=== PATIENT | male | born 1965 | race Caucasian/White ===

== ENCOUNTER 2018-04-30 17:11 | Emergency (ER) | payer SELFPAY ==
[2018-04-30 18:08] LABS: #Basophils 0.1 thou/uL (0.0-0.2); #Eosinphils 0.2 thou/uL (0.0-0.7); #Monocytes 0.6 thou/uL (0.11-0.59); #Neutrophils 6.6 thou/uL (1.40-6.50); %Eosinophils 2.6 % (0.0-10.0); %Lymphocytes 21.4 % (21.0-51.0); %Neutrophils 69.1 % (42.0-75.0); Hemoglobin 14.9 g/dL (14.0-18.0); Mean Corpuscular HGB CONC 32.9 g/dL (32.0-36.0); Mean Corpuscular Hemoglobin 27.7 pg (27.0-31.0); Mean Corpuscular Volume 84.1 fL (78.0-98.0); Mean Platelet Volume 9.6 fL (7.4-10.4); Platelet Count 227 thou/uL (130-400); RBC Distribution Width 12.5 % (11.5-14.5); White Blood Cell (WBC) Count 9.5 thou/uL (4.8-10.8)
[2018-04-30] MEDS ORDERED: Pantoprazole 40 MG VIAL ONE (18:27)
[2018-04-30 18:36] LABS: ALT (SGPT) 56 U/L (8-55); AST (SGOT) 33 U/L (5-34); Albumin 4.7 g/dL (3.5-5.0); Alkaline Phosphatase 86 U/L (40-150); Anion Gap 14 mmol/L (10-20); BUN (Urea Nitrogen) 16 mg/dL (8.4-25.7); Bilirubin, Total 0.4 mg/dL (0.2-1.2); CK (CPK) 87 U/L (30-200); CKMB 0.8 ng/mL (0-6.6); Calc. Creatinine Clearance 0 mL/min (70-130); Calcium 10.2 mg/dL (7.8-10.44); Carbon Dioxide 23 mmol/L (22-29); Chloride 103 mmol/L (98-107); Estimated GFR-MDRD Greater than 90; Glucose 103 mg/dL (70-105); Lipase 43 U/L (8-78); Potassium 4.1 mmol/L (3.5-5.1); Protein, Total 8.7 g/dL (6.0-8.3); Sodium 136 mmol/L (136-145); Troponin I Less than 0.010 ng/mL (< 0.028)
--- NOTE | 2018-04-30 19:36 | RAD ---
PORTABLE CHEST ONE VIEW: 04/30/18 at 5:39 p.m. HISTORY: Chest pain. FINDINGS: Comparison is made with exam of 03/07/11. The heart size is normal. The lungs are expanded without focal areas of consolidation, pneumothoraces or pleural effusions. IMPRESSION: No radiographic evidence of acute cardiopulmonary process. POS: [facility]
== END 2018-04-30 20:10 | disposition home or self-care (01) ==
LOC: ERS 17:11
DX: R07.89 Other chest pain (principal); I10 Essential (primary) hypertension; F41.9 Anxiety disorder, unspecified; Z87.891 Personal history of nicotine dependence; Z79.899 Other long term (current) drug therapy
CPT/HCPCS: 36415; 71045; 80053; 82550; 82553; 83690; 84484; 85025; 93005; 96374; C9113

== ENCOUNTER 2020-02-06 12:44 | Emergency (ER) | payer SELFPAY ==
[2020-02-06 13:30] LABS: Bilirubin Negative (Negative); Blood, Urine Negative (Negative); Clarity Clear (Clear); Glucose, Urine (Dipstick) Normal (Negative); Ketone, Urine Negative (Negative); Leukocyte Negative Leu/uL (Negative); Nitrite Negative (Negative); Protein, Urine (Dipstick) Negative (Neg-Trace); Specific Gravity, Urine 1.021 (1.002-1.036); Urobilinogen Normal mg/dL (Less than 2)
[2020-02-06 13:44] LABS: #Eosinphils 0.2 thou/uL (0.0-0.7); #Lymphocytes 1.7 thou/uL (1.20-3.40); #Monocytes 0.5 thou/uL (0.11-0.59); #Neutrophils 5.1 thou/uL (1.40-6.50); %Basophils 0.6 % (0.0-1.0); %Eosinophils 2.6 % (0.0-10.0); %Lymphocytes 22.3 % (21.0-51.0); %Monocytes 6.2 % (0.0-10.0); %Neutrophils 68.3 % (42.0-75.0); Hemoglobin 13.4 g/dL (14.0-18.0); Mean Corpuscular HGB CONC 33.3 g/dL (32.0-36.0); Mean Corpuscular Hemoglobin 28.2 pg (27.0-31.0); Mean Corpuscular Volume 84.7 fL (78.0-98.0); Mean Platelet Volume 9.7 fL (7.4-10.4); Platelet Count 172 thou/uL (130-400); RBC Distribution Width 12.4 % (11.5-14.5); Red Blood Cell (RBC) Count 4.77 mill/uL (4.70-6.10); White Blood Cell (WBC) Count 7.5 thou/uL (4.8-10.8)
[2020-02-06 14:04] LABS: Anion Gap 11 mmol/L (10-20); BUN (Urea Nitrogen) 14 mg/dL (8.4-25.7); Calc. Creatinine Clearance 0 mL/min (70-130); Calcium 9.4 mg/dL (7.8-10.44); Carbon Dioxide 26 mmol/L (22-29); Chloride 105 mmol/L (98-107); Estimated GFR-MDRD 84; Glucose 127 mg/dL (70-105); Potassium 4.2 mmol/L (3.5-5.1); Sodium 138 mmol/L (136-145)
--- NOTE | 2020-02-06 14:13 | CT ---
CT Stone Protocol History: Right flank pain Comparison: None. Findings: Lung bases are clear. No pericardial effusion. Diffuse hepatic steatosis. Minimally obstructing calculus distal left ureter 3 cm from the ureterovesicular junction measuring 3 mm in transverse with a length of 5 mm. Minimal left hydroureteronephrosis. There are nonobstructing calculi within both renal collecting systems including a 4 mm right interpol ar calculus as well as a 2 mm left superior and 1 x 2 mm interpolar renal calculus. No dilated loops of large or small bowel. No acute osseous abnormality. Noncontrast evaluation of the spleen and pancreas as well as the gallbladder are unremarkable. Impression: Minimally obstructing calculus distal left ureter 3 cm from the ureterovesicular junction measuring 3 x 5 mm.
== END 2020-02-06 14:35 | disposition home or self-care (01) ==
LOC: ERS 12:44
DX: N13.2 Hydronephrosis with renal and ureteral calculous obstruction (principal); I10 Essential (primary) hypertension; E78.00 Pure hypercholesterolemia, unspecified; F41.9 Anxiety disorder, unspecified; Z87.891 Personal history of nicotine dependence; Z79.899 Other long term (current) drug therapy
CPT/HCPCS: 36415; 74176; 80048; 81003; 85025

== ENCOUNTER 2020-06-12 10:53 | Emergency (ER) | payer SELFPAY ==
[2020-06-12 11:42] LABS: #Monocytes 0.3 thou/uL (0.11-0.59); #Neutrophils 2.9 thou/uL (1.40-6.50); %Eosinophils 0.1 % (0.0-10.0); %Lymphocytes 23.8 % (21.0-51.0); %Monocytes 6.5 % (0.0-10.0); %Neutrophils 68.7 % (42.0-75.0); Hemoglobin 13.2 g/dL (14.0-18.0); Mean Corpuscular HGB CONC 33.9 g/dL (32.0-36.0); Mean Corpuscular Hemoglobin 28.3 pg (27.0-31.0); Mean Corpuscular Volume 83.6 fL (78.0-98.0); Mean Platelet Volume 9.9 fL (7.4-10.4); Platelet Count 130 thou/uL (130-400); RBC Distribution Width 12.8 % (11.5-14.5); Red Blood Cell (RBC) Count 4.66 mill/uL (4.70-6.10); White Blood Cell (WBC) Count 4.2 thou/uL (4.8-10.8)
[2020-06-12 12:02] LABS: ALT (SGPT) 37 U/L (8-55); AST (SGOT) 31 U/L (5-34); Albumin 3.6 g/dL (3.5-5.0); Alkaline Phosphatase 53 U/L (40-110); Anion Gap 14 mmol/L (10-20); BUN (Urea Nitrogen) 13 mg/dL (8.4-25.7); Bilirubin, Total 0.6 mg/dL (0.2-1.2); Calc. Creatinine Clearance 0 mL/min (70-130); Calcium 8.2 mg/dL (7.8-10.44); Carbon Dioxide 24 mmol/L (22-29); Chloride 99 mmol/L (98-107); Estimated GFR-MDRD Greater than 90; Globulin 3.3 g/dL (2.4-3.5); Glucose 138 mg/dL (70-105); Lipase 40 U/L (8-78); Potassium 3.2 mmol/L (3.5-5.1); Protein, Total 6.9 g/dL (6.0-8.3); Sodium 134 mmol/L (136-145)
--- NOTE | 2020-06-12 13:28 | CT ---
EXAM: CT angiogram of the chest including 3-D rendering: HISTORY: Chest pain, Covid positive COMPARISON: None FINDINGS: There is adequate opacification of the pulmonary arteries. No evidence for aortic aneurysm or dissection. No convincing CT evidence for acute pulmonary embolism. Evidence for bilateral extensive groundglass opacity changes evidence for classic Covid 19 pneumonia No evidence for mediastinal mass or adenopathy. No evidence for pleural or pericardial effusion. Small hiatal hernia. IMPRESSION: No convincing CT evidence for acute pulmonary embolism. Evidence for bilateral classic Covid pneumonia
[2020-06-12] MEDS ORDERED: Iopamidol-370 76% 500 ML 1 ML ONE (15:33)
[2020-06-12] MEDS ORDERED: Potassium Chloride 20 MEQ TAB ONE (15:41)
== END 2020-06-12 15:44 | disposition home or self-care (01) ==
LOC: ERS 10:53
DX: U07.1 COVID-19 (principal); J12.89 Other viral pneumonia; E87.6 Hypokalemia; I10 Essential (primary) hypertension; E78.00 Pure hypercholesterolemia, unspecified; F41.9 Anxiety disorder, unspecified; Z87.891 Personal history of nicotine dependence; Z79.899 Other long term (current) drug therapy
CPT/HCPCS: 36415; 71275; 80053; 83690; 84484; 85025; 93005; Q9967

== ENCOUNTER 2021-12-02 11:15 | Emergency (ER) | payer SELFPAY ==
[~2021-12-02 11:15] MED LIST: Iopamidol-370 76% 500 ML 1 ML ONE
[2021-12-02 12:36] LABS: #Basophils 0.1 thou/uL (0.0-0.2); #Eosinphils 0.2 thou/uL (0.0-0.7); #Lymphocytes 1.7 thou/uL (1.20-3.40); #Monocytes 0.6 thou/uL (0.11-0.59); #Neutrophils 4.6 thou/uL (1.40-6.50); %Basophils 0.9 % (0.0-1.0); %Lymphocytes 23.4 % (21.0-51.0); %Monocytes 8.8 % (0.0-10.0); Hemoglobin 13.9 g/dL (14.0-18.0); Mean Corpuscular HGB CONC 33.3 g/dL (32.0-36.0); Mean Corpuscular Hemoglobin 29.2 pg (27.0-31.0); Mean Corpuscular Volume 87.8 fL (78.0-98.0); Mean Platelet Volume 9.9 fL (7.4-10.4); Platelet Count 161 thou/uL (130-400); RBC Distribution Width 12.4 % (11.5-14.5); Red Blood Cell (RBC) Count 4.76 mill/uL (4.70-6.10); White Blood Cell (WBC) Count 7.2 thou/uL (4.8-10.8)
[2021-12-02 12:51] LABS: Bilirubin Negative (Negative); Blood, Urine Negative (Negative); Clarity Clear (Clear); Glucose, Urine (Dipstick) Normal (Negative); Ketone, Urine Negative (Negative); Leukocyte Negative Leu/uL (Negative); Nitrite Negative (Negative); Protein, Urine (Dipstick) Negative (Neg-Trace); Specific Gravity, Urine 1.017 (1.002-1.036); Urobilinogen Normal mg/dL (Less than 2)
[2021-12-02 12:55] LABS: ALT (SGPT) 26 U/L (8-55); AST (SGOT) 30 U/L (5-34); Alkaline Phosphatase 73 U/L (40-110); Anion Gap 12 mmol/L (10-20); BUN (Urea Nitrogen) 12 mg/dL (8.4-25.7); Bilirubin, Total 0.5 mg/dL (0.2-1.2); Calc. Creatinine Clearance 0 mL/min (70-130); Calcium 9.2 mg/dL (7.8-10.44); Carbon Dioxide 22 mmol/L (22-29); Chloride 104 mmol/L (98-107); Globulin 3.4 g/dL (2.4-3.5); Glucose 106 mg/dL (70-105); Lipase 41 U/L (8-78); Potassium 4.8 mmol/L (3.5-5.1); Protein, Total 7.4 g/dL (6.0-8.3); Sodium 133 mmol/L (136-145)
== END 2021-12-02 13:42 | disposition home or self-care (01) ==
LOC: ERS 11:15
DX: R10.33 Periumbilical pain (principal); I10 Essential (primary) hypertension; E78.00 Pure hypercholesterolemia, unspecified; Z87.891 Personal history of nicotine dependence; Z79.899 Other long term (current) drug therapy
CPT/HCPCS: 74177; 80053; 81003; 83690; 85025; Q9967